=== PATIENT | male | born 1960 | race Caucasian/White ===

== ENCOUNTER → 2016-08-13 | Outpatient (CLI) | payer OTHER ==
[~2016-08-13] VITALS: Ht 172.7 cm; Wt 79.6 kg
[~2016-08-13] MED LIST: ASPIRIN EC81 M1; ASPIRIN PO; BENICAR HCT 401 EACH PO; BENICAR40 MG PO; COLACE100 MG PO; CYMBALTA20 MG PO; CYMBALTA30 MG PO; FELDENE20 MG PO; FLEXERIL PO; GLUCOSAMINE CH1 EAC2 PO; HYDROCODON-ACE1 EAC5 PO; IBUPROFEN 200200 M1 PO; LYRICA 75 MG CA75 MG PO; METOPROLOL TART25 MG PO; MOBIC15 MG PO; MULTIVITAMINS PO; NORCO 10-325 T1 EACH PO; OXYCONTIN10 M1 PO; OXYCONTIN10 MG PO; OXYCONTIN20 M1 PO; OXYCONTIN20 MG PO; PREDNISONE 10 M10 M1 PO
--- NOTE | ~2016-08-13 | HPC ---
[facility] [place] [address] PAIN MANAGEMENT CONSULTATION Name: ELENA BRADY Room #: REG Génesis Gomez#: [id number] Admission: 08/13/16 Attend Phys: Herrera Joseph MD Discharge: Date of : 56 Report #: [id number] THIS REPORT FOR: //name// CC: Tam Joseph DATE OF SERVICE: 08/13/2016 REASON FOR VISIT: Followup visit for progressive scoliosis of the thoracolumbar spine. HISTORY OF PRESENT ILLNESS: Jean-Claude returns to pain clinic today wearing a brace. 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 It is getting more difficult for him. Pain is across the thoracic and lumbar spine. He has localized pain and tenderness. He has myofascial tenderness also along the paravertebral muscles. He has been using oxycodone to help him get through his work day. He takes 2 tablets to 4 tablets daily. He is under an opioid agreement, which we reviewed today. Our goals are to keep him functioning at home and with work. He is getting more discouraged because of the progressive nature of his disease and the long-term outlook. We discussed on several occasions receiving a surgical consultation, and I have recommended again Dr. Jones at [facility]. I hope that he takes an opportunity to make appointment with Dr. Jones to discuss corrective surgery. There are certainly a number of worries for him about this. 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 He does have a disability policy which may come into play typically after extensive reconstructive spinal surgery, which may be necessary. Recovery can be anywhere between 3 and 6 months. The good news is at the other end of that, he may be much more functional and this may be more controlled as a result of treatment. He denies any current side effects from medication. He does feel that he is a bit depressed, and I think this is situational and not unusual in this circumstance. We discussed different medications and we decided to try Cymbalta since it has indications for both pain and for depression. I think that the pain relieving benefits may be recognized from this medication as well, and I would like him to initiate it as soon as possible at 30 mg. PHYSICAL EXAMINATION: GENERAL: He is pleasant, alert and oriented. He is realistic. His affect is pleasant, but a little discouraged. VITAL SIGNS: Blood pressure of 144/94 and heart rate 74. His BMI is 26.7. MUSCULOSKELETAL: Examination of his spine reveals rotational scoliosis of the thoracolumbar spine. Tenderness along the paravertebral muscles bilaterally. He has prominence on the left. Range of motion is limited in flexion, extension and rotation. [facility] [address] [place] [address] PAIN MANAGEMENT CONSULTATION Name: ELENA BRADY Ara Room #: REG Génesis Gomez#: [id number] Admission: 08/13/16 Attend Phys: Herrera Joseph MD Discharge: Date of : 56 Report #: [id number] IMPRESSION: 1. Kyphoscoliosis of thoracolumbar spine with lumbar spondylitic pain. 2. Management of high-risk medication. RECOMMENDATIONS: I have ordered his hydrocodone under terms of our agreement and Cymbalta trial. We will follow up by phone. I see Dr. Brady regularly around the hospital, so we can touch base on how his new medication is working. <ELECTRONICALLY SIGNED> By: Herrera Joseph MD 09/13/16 1130 [id number] Herrera Joseph MD /nt
[2016-08-13 10:02] VITALS: BP 144/94
== END | disposition home or self-care (01) ==
LOC: PAIN 07:03
DX: M41.85 Other forms of scoliosis, thoracolumbar region (principal); M46.86 Other specified inflammatory spondylopathies, lumbar region

== ENCOUNTER → 2017-01-26 | Outpatient (CLI) | payer OTHER ==
--- NOTE | ~2017-01-26 | HPC ---
[facility] [address] [place] [address] PAIN MANAGEMENT CONSULTATION Name: ELENA BRADY Ara Room #: REG JELENAGénesis Gomez#: [id number] Admission: 01/26/17 Attend Phys: Herrera Joseph MD Discharge: Date of : 56 Report #: [id number] THIS REPORT FOR: //name// CC: Tam Joseph DATE OF SERVICE: 01/26/2017 Followup visit for chronic pain related to severe degenerative disease of the thoracolumbar spine with scoliosis. The patient returns to pain clinic today for renewal of pain medication. Pain score is 4/10 with medication. He has been using cautiously hydrocodone 10/325 four times daily. 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 He has considered surgery on several occasions, but has decided at this time that he would prefer to manage with medication, brace and good pacing, planning and prioritizing for his lifestyle. He seems to have accepted his chronic condition, although of course it is discouraged not to be able to be as active as he would like. PAST MEDICAL HISTORY: Significant for hypertension, ACL repair on the left. He has a history of some cardiac complications, but the workup was negative. PHYSICAL EXAMINATION: He is a pleasant 56-year-old. He looks younger than his stated age. He moves easily from sitting to standing position and walks with his brace. Scoliotic change is noted in the low back with localized tenderness across the lordotic curve. His most recent x-rays date back a few years showing degenerative scoliosis with leftward curvature L2 and L3 and a pseudo retrolisthesis of L1 on L2, L2 on L3. ____ changes are noted at several levels. IMPRESSION: 1. Chronic intractable low back pain with left lumbar radiculopathy. Leg pain has been much improved and most of his pain remains in the back at this time. 2. Management of high risk medication. PLAN: I renewed his medication under terms of an opioid agreement. His MME dose daily is currently at 40. I have suggested trial of Celebrex, he can take it cautiously and discontinue all other anti-inflammatory drugs. Followup visit is planned in 3 months. By: [id number] Herrera Joseph MD /nt
[2017-01-26 15:35] VITALS: BP 119/75
== END | disposition home or self-care (01) ==
LOC: PAIN 06:54
DX: M54.16 Radiculopathy, lumbar region (principal); G89.29 Other chronic pain; I10 Essential (primary) hypertension; F11.20 Opioid dependence, uncomplicated; Z98.890 Other specified postprocedural states; Z79.899 Other long term (current) drug therapy

== ENCOUNTER → 2017-07-23 | Outpatient (CLI) | payer BC, OTHER ==
[~2017-07-23] MED LIST changes: +CELEBREX 200 M200 MG PO; +METHADONE HCL5 MG PO
--- NOTE | ~2017-07-23 | HPC ---
[facility] [address] [place] [address] PAIN MANAGEMENT CONSULTATION Name: ELENA BRADY Room #: REG MECHE Gomez#: [id number] Admission: 07/23/17 Attend Phys: Herrera Joseph MD Discharge: Date of : 56 Report #: [id number] THIS REPORT FOR: //name// CC: Tam Joseph DATE OF SERVICE: 07/23/2017 DATE OF REGISTRATION: 07/23/2017 Followup visit for chronic intractable pain with significant kyphoscoliosis of the thoracolumbar spine. The patient returns to pain clinic today for followup. He was last seen on 01/26/2017. I provided him with some opioid medications and I have also suggested Celebrex for what is likely facet arthropathy. We have talked about other medication changes today. Suggested that he might benefit from calcium channel rustam such as gabapentin, even though his pain is primarily mechanical I believe. There is some evidence of small fibers may play a role in this and gabapentin can sometimes help. He gets tired with it and Gralise I think would be a good option. He does not feel like he can work when he takes gabapentin even titrating with small dose. A sample pack was offered. I have also talked about a long-acting opioid. Per my experience a rotation to methadone is an excellent drug for patients who have been on longstanding opioids and I am going to try that with the patient today. We had a long talk about methadone risks and benefits since it has rather a salty reputation. We have found in our practice however that good educations, proper titration of medication and very close monitoring has made this a very useful and safe medication and is cost beneficial to many of our patients. It helps with a variety of pain and the patient is anxious to try something that will provide him with a more consistent baseline rather than the 4 hydrocodone he is taking a day now. He does get relief from opioids, but the duration of responses not as long as he would like. PHYSICAL EXAMINATION: He is pleasant, alert and oriented. He wears a brace around his waist. His pain score is a 4/10. His blood pressure is 135/80, heart rate is 80. He has some tenderness across the low back and there is pain at the apex of his curvature. IMPRESSION: 1. Chronic low back pain. Much of this is mechanical now. 2. Management of high risk medications under terms of written opioid agreement. PLAN: We have reviewed his agreement. We reviewed his use of medication. We discussed methadone as an additional medication and I have given him his first [address] [address] PAIN MANAGEMENT CONSULTATION Name: ELENA BRADY Room #: REG [facility] Jason#: [id number] Admission: 07/23/17 Attend Phys: Herrera Joseph MD Discharge: Date of : 56 Report #: [id number] prescription for methadone at 60 tablets one-half tablet taken 3 times a day, titrating up to 1 tablet 3 times a day. He has his hydrocodone and Celebrex. 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 He will give me a feedback on how the medication is working. He will safeguard all medications. By: [id number] Herrera Joseph MD /nt
[2017-07-23 12:36] VITALS: BP 111/77
== END ==
LOC: PAIN 07:16
DX: M41.85 Other forms of scoliosis, thoracolumbar region (principal); F11.90 Opioid use, unspecified, uncomplicated; Z79.899 Other long term (current) drug therapy

== ENCOUNTER → 2018-01-04 | Outpatient (CLI) | payer BC, OTHER ==
[~2018-01-04] VITALS: Ht 165.1 cm; Wt 78.9 kg
[~2018-01-04] MED LIST changes: +HYSINGLA ER30 MG PO
--- NOTE | ~2018-01-04 | HPC ---
[facility] [address] [place] [address] PAIN MANAGEMENT CONSULTATION Name: ELENA BRADY Ara Room #: REG MECHE Gomez#: [id number] Admission: 01/04/18 Attend Phys: Herrera Joseph MD Discharge: Date of : 56 Report #: [id number] THIS REPORT FOR: //name// CC: Tam Joseph DATE OF SERVICE: 01/04/2018 SUBJECTIVE: Followup visit for severe kyphoscoliosis of the thoracolumbar spine. This is a followup visit for the patient who I have last seen around 6 months ago. I actually touch base with him regularly. 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 He has been managing his severe back pain related to degenerative conditions with medication provided through our clinic. He also follows with Dr. Tam Nuñez. We have tried to use short acting opioids so that he can use them as needed. He is finding that the in his medication are causing problems, so today we discussed Hysingla. He has done well with hydrocodone. I did try him on methadone for a baseline opioid and he found that to be a bit cloudy for him. He did not like the sensation that he got from it. He has always done well with hydrocodone, so hopefully Hysingla will be a good choice for him. 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 He has an active family life. It is difficult for him to get through the day with his pain, but he is doing it. He is grateful for the relief with medication and has had no misuse or abuse of the medication. He denies any significant side effects. We reviewed other suggestions for co-analgesia including ibuprofen which he currently takes, cautiously understanding GI, renal and cardiac side effects. PHYSICAL EXAMINATION: GENERAL: He is pleasant, alert and oriented. VITAL SIGNS: Blood pressure is 116/67, heart rate 78, respirations 16. No signs of overmedication. He is a 5 feet 5 inches with a weight of 174 pounds, BMI is 29.0. MUSCULOSKELETAL: He wears a Velcro support lumbar brace, which helps while in the sitting position. Curvature of the spine is noted with local tenderness. Denies any leg pain at this time with standing or walking. IMPRESSION: 1. Severe chronic back pain, thoracolumbar, related to kyphoscoliosis. 2. Management of high risk medications under terms of written opioid agreement. I reviewed for him his opioid agreement and also the CDC guidelines. We talked [address] [address] PAIN MANAGEMENT CONSULTATION Name: ELENA BRADY Room #: REG [facility].#: [id number] Admission: 01/04/18 Attend Phys: Herrera Joseph MD Discharge: Date of : 56 Report #: [id number] about his morphine milligram equivalents particularly in light of the new changes. We decided to place him at 30 MME or 30 of Hysingla for baseline and he will be allowed to additional hydrocodone 10/325 tablets for breakthrough pain, which will maximize his daily morphine milligram equivalents at 50. Discussed side effects, importance of safeguarding and the other important aspects of his opioid agreement. Plan to see him back in the pain clinic officially in 6 months. I will touch base with him throughout the weeks and months in the hospital. By: 1305 22 Herrera Joseph MD /nt
[2018-01-04 10:25] VITALS: BP 116/67
== END ==
LOC: PAIN 06:52
DX: M41.85 Other forms of scoliosis, thoracolumbar region (principal); F11.90 Opioid use, unspecified, uncomplicated

== ENCOUNTER → 2019-08-01 | Outpatient (CLI) | payer BC ==
[~2019-08-01] VITALS: Ht 165.1 cm; Wt 77.6 kg
[~2019-08-01] MED LIST changes: +CELEBREX 200 M200 M1 PO
--- NOTE | ~2019-08-01 | HPC ---
[facility] [address] [place] [address] PAIN MANAGEMENT CONSULTATION Name: ELENA BRADY Room #: REG MECHE Jason#: [id number] Admission: 08/01/19 Attend Phys: Herrera Joseph MD Discharge: Date of : 56 Report #: [id number] THIS REPORT FOR: //name// CC: Tam Joseph DATE OF SERVICE: 08/01/2019 Followup visit for chronic intractable back pain with severe kyphoscoliosis of thoracolumbar spine. I am seeing the patient today in followup. We see each other fairly frequently and keep in touch about his chronic pain medication use at the hospital. 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 He is doing well and credits much of his ability to function on a daily basis on his ability to control pain with the use of his medication. He has been on opioids now for a number of years. There have been no unusual events. He is using his medication clearly as outlined in our medical plan and there has been no evidence of misuse, abuse or addiction. He denies significant side effects. He has tried other medications. In fact we discussed today his reaction to Lyrica, which caused significant drowsiness. He has no drowsiness and is able to function highly with the Hysingla. Hysingla 30 mg taken once daily has been able to reduce his number of pills taken. We do also allow him to take hydrocodone as a breakthrough 10/325 mg. He takes 1-2 tablets a day maximum. He uses it in anticipation of painful events or when the pain becomes severe after activity. His only other co-analgesic is Celebrex, which he also takes daily 200 mg. PQRS review shows that he does not have significant osteoarthritis, but he does have spondylosis of the lumbar spine. His BMI is 28.5, slightly up from last visit. Pain intensity 3. Blood pressure is 120/80. Heart rate is 80. He has not fallen nor is he a fall risk. He is on no blood thinning medications. Dr. Nuñez does have him on medication for hypertension of Benicar 40/12.5 which he takes daily. He has signed an opioid agreement. He has completed an opioid risk tool with a score of 0. His functional score today is 35, slightly higher than his last at 18. Denies use of tobacco. Drinks alcohol in a social setting. He is careful about using alcohol after taking a shorter acting opioid due to the additive effects. Urine drug screens have been performed at my discretion. There seems to be no indication of misuse or abuse and I have elected not to order one today. PHYSICAL EXAMINATION: GENERAL: He is well dressed, well groomed, alert and oriented. No signs of [facility] [address] [place] [address] PAIN MANAGEMENT CONSULTATION Name: ELENA BRADY Ara Room #: REG CLGénesis Gomez#: [id number] Admission: 08/01/19 Attend Phys: Herrera Joseph MD Discharge: Date of : 56 Report #: [id number] overmedication, depression or anxiety. Moves independently from sitting to standing position, walks without antalgic features. He is wearing a lumbar spine brace. There is tenderness across the lumbosacral segment. Kyphoscoliosis is noted. IMPRESSION: 1. Chronic intractable back pains due to kyphoscoliosis. He has spondylitic and myofascial pain. The radicular pain has been well managed. 2. Management of high risk medications under terms of written opioid agreement. PLAN: I have renewed his medications electronically for the next 3 months. He will continue to follow up with us. He saw Elba Hightower at his last visit. I have allowed him to be seen in 6-month interval since I talked to him with some great regularity and I feel like we are keeping touch. If he has any problems, he knows he will contact our clinic. I reviewed the prescription drug monitoring information for the last 6 months and he is right on schedule. By: 1312 Herrera Joseph MD /nt
--- NOTE | 2019-08-01 13:09 | NUR ---
Pain Clinic Assessment: 1. History of Osteoarthritis: NO History of Rheumatoid Arthritis: NO 2. Height: 5 ft. 5 in. 165.1 cm. Weight: 171.0 lb. oz. 77.565 kg. Patient's BMI: 28.5 3. Vital Signs: BP: Pulse: Resp: Temp: 02 Sat: ECG Mon: 4. Pain Intensity: 3 5. Fall Risk: Dizziness: N Needs help standing or walking: N Fallen in the last 3 months: N Fall risk comments: 6. Patient on Blood Thinner: None 7. History of Hypertension: Y 8. Opioid Therapy greater than 6 weeks: Y Opiate Contract Signed: 08/20/07 9. Risk Assessment Tool Provided: 0 LOW 10. Functional Assessment Tool: 11. Recreational Drug Use: Never Drug Type: Tobacco Use: Never Smoker Tobacco Type: Amount or Packs/day: How Many Years: Alcohol Use: Yes Frequency: Weekly Quant:
== END ==
LOC: PAIN 06:30
DX: G89.4 Chronic pain syndrome (principal); M41.84 Other forms of scoliosis, thoracic region; Z79.891 Long term (current) use of opiate analgesic

== ENCOUNTER → 2019-09-08 | Outpatient (CLI) | payer BC ==
[~2019-09-08] VITALS: Ht 170.2 cm; Wt 76.2 kg
[~2019-09-08] MED LIST changes: +NEURONTIN100 MG PO; +RAYOS5 MG PO
--- NOTE | ~2019-09-08 | HPC ---
[facility] [place] [address] [place] [address] PAIN MANAGEMENT CONSULTATION Name: ELENA BRADY Room #: REG JELENAGénesis Gomez#: [id number] Admission: 09/08/19 Attend Phys: Herrera Joseph MD Discharge: Date of : 56 Report #: [id number] THIS REPORT FOR: cc: Tam Nuñez MD, Rene P. MD Morgan, Richard L. MD ~ THIS REPORT FOR: //name// CC: Tam Joseph DATE OF SERVICE: 09/08/2019 Followup visit for cervical radiculopathy, C8-T1 distribution. The patient returns to pain clinic today for a cervical epidural injection. I have had several phone calls with him over the course of the last 2 weeks. He has had increasing pain in his neck radiating into a C8-T1 distribution. 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 He has well documented longstanding degenerative spine disease involving cervical, thoracic and lumbar spine. He has chronic intractable pain, which we have been able to manage fairly effectively with medication under terms of written medication management agreement. He has done well with medications. He is currently on a long-acting hydrocodone, Hysingla 30 mg q. 24 hours. He also uses Celebrex 200 mg on a daily basis, gabapentin 100 mg t.i.d. Only other medicines are glucosamine chondroitin, Benicar for hypertension and a multivitamin. He did have a prednisone Dosepak that he took a week or two ago, which is helpful temporarily for his radicular pain. Today, he describes his pain as a 7/10, constant, dull aching sensation, worse with standing and walking and when he rotates his head to the right. He is alleviated when he lies down and can take medication for some relief. He has also used a soft neck brace, which he has found useful. PHYSICAL EXAMINATION: GENERAL: Pleasant 59-year-old. VITAL SIGNS: Blood pressure 134/81, heart rate 84, respirations 18. He is 5 feet 7 inches, 168 pounds, BMI of 26.3. MUSCULOSKELETAL: Cervical spine exam reveals decreased range of motion, particularly with right lateral tilt and rotation. Contralateral rotation also radiates pain into the right C8 distribution. It does not extend as far as the hand. 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 There is no fine motor involvement. There is a [address] [address] PAIN MANAGEMENT CONSULTATION Name: ELENA BRADY [id number] Admission: 09/08/19 Attend Phys: Herrera Joseph MD Discharge: Date of : 56 Report #: [id number] negative Dinorah's sign. CHEST: Clear. CARDIAC: Rhythm is regular. EXTREMITIES: Examination of reflexes in lower extremities demonstrates normal reflexes with no evidence of hyperreflexia to suggest cord compression. His MRI is reviewed. He could have a radiologist as a patient. He can review the films with me. The area of concern is at C7-T1. There is evidence of reaction at C7-T1 facet joint. This may cause some extension into the canal, which ultimately resulted in irritation of the nerve root ____. There is some neural foraminal narrowing and spinal stenosis is most prominent there at C7-T1. IMPRESSION: Cervical radiculopathy. RECOMMENDATIONS: Cervical epidural, I think, is quite reasonable and indicated in this situation. I have reviewed the potential risks and benefits today. He is anxious to proceed. PROCEDURE: After informed consent, he was taken to the fluoroscopic suite, placed prone, skin prepped with ChloraPrep. Skin anesthetized over the C6-C7 interspace. We had previously reviewed and this is most likely safe entry point just above his narrowing. A 20-gauge Tuohy epidural needle was advanced into the epidural space just to the right of midline using loss of resistance technique. There was no blood or CSF aspirated. One 0.25 mL followed by another 0.5 mL of Omnipaque was injected with an excellent epidurogram achieved. It was followed by 3 mL of 1% lidocaine mixed with 80 mg of triamcinolone. He tolerated the procedure well. He was observed for 45 minutes and discharged. Followup visit is planned by phone and will be in communication. We will continue to provide his medications on time per his requirements from the opioid/medication agreement. By: [id number] Herrera Joseph MD /nt
[2019-09-08 08:15] VITALS: BP 134/81
--- NOTE | 2019-09-08 08:22 | NUR ---
Pain Clinic Assessment: 1. History of Osteoarthritis: NO History of Rheumatoid Arthritis: NO 2. Height: 5 ft. 7 in. 170.2 cm. Weight: 168.0 lb. oz. 76.204 kg. Patient's BMI: 26.3 3. Vital Signs: BP: 134/81 Pulse: 84 Resp: 16 Temp: 02 Sat: 96 ECG Mon: 4. Pain Intensity: 7 5. Fall Risk: Dizziness: N Needs help standing or walking: N Fallen in the last 3 months: N Fall risk comments: 6. Patient on Blood Thinner: None 7. History of Hypertension: Y 8. Opioid Therapy greater than 6 weeks: Y Opiate Contract Signed: 08/20/07 9. Risk Assessment Tool Provided: 0 LOW 10. Functional Assessment Tool: 11. Recreational Drug Use: Never Drug Type: Tobacco Use: Never Smoker Tobacco Type: Amount or Packs/day: How Many Years: Alcohol Use: Yes Frequency: Quant:
== END | disposition home or self-care (01) ==
LOC: PAIN 06:48
DX: M54.12 Radiculopathy, cervical region (principal); G89.29 Other chronic pain; Z79.891 Long term (current) use of opiate analgesic; Z79.899 Other long term (current) drug therapy; Z98.890 Other specified postprocedural states

== ENCOUNTER → 2020-02-09 | Outpatient (CLI) | payer BC, OTHER ==
[~2020-02-09] VITALS: Ht 167.6 cm; Wt 76.1 kg
[~2020-02-09] MED LIST changes: +LOSARTAN-HCTZ1 EAC3 PO
--- NOTE | ~2020-02-09 | HPC ---
[facility] [address] [place] [address] PAIN MANAGEMENT CONSULTATION Name: ELENA BRADY Room #: REG MECHE MarcosRajeshLeona#: [id number] Admission: 02/09/20 Attend Phys: Herrera Joseph MD Discharge: Date of : 56 Report #: [id number] THIS REPORT FOR: cc: Tam Nuñez MD, Rene P. MD Morgan,Herrera Bansal MD ~ CC: Tam Joseph DATE OF SERVICE: 02/09/2020 Follow up visit for chronic cervical radiculopathy. I see the patient officially about every 6 months. 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 His back is doing well and he has really done exceptionally well with his cervical epidural injection that we performed in September. That pain has abated completely. His pain today is mostly in his lumbar spine, he has some leg pain as well. Medication has done a nice job of controlling that pain. He has been on an opioid agreement for over 5 years. We discussed the terms of that agreement and the chronic long-term use of opioids on both a medical and philosophical basis. He understands that he may remain on it indefinitely. He is grateful that it has allowed him to continue working while his young children are growing up and going off to school. It is hard for me to believe that his twins are now 16 years of age. Today, he looks fit. His height is 5 feet 6 inches, weight is 167, BMI is 27.1, blood pressure 122/74, heart rate 93, respirations 18, O2 sat 97, pain intensity is listed as a 5/10. He has no difficulty moving independently from sitting to standing position. 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 Localized tenderness throughout and some restrictions in motion. IMPRESSION: Chronic intractable pain related to severe thoracolumbar spondylosis. PLAN: We will continue his current regimen of Hysingla 30 mg once daily and hydrocodone 1-2 tablets daily for breakthrough pain during work hours to help him control intractable pain while he is sitting. He denies side effects and carefully safeguards his medication. I have reviewed his use under the prescription drug monitoring program and there are no unexpected entries. Prescriptions were released earlier this month. By: [id number] Herrera Joseph MD /nt
[2020-02-09 14:44] VITALS: BP 122/74
--- NOTE | 2020-02-09 14:52 | NUR ---
Pain Clinic Assessment: 1. History of Osteoarthritis: back hands History of Rheumatoid Arthritis: NO 2. Height: 5 ft. 6 in. 167.6 cm. Weight: 167.8 lb. oz. 76.114 kg. Patient's BMI: 27.1 3. Vital Signs: BP: 122/74 Pulse: 93 Resp: 18 Temp: 02 Sat: 97 ECG Mon: 4. Pain Intensity: 5 5. Fall Risk: Dizziness: N Needs help standing or walking: N Fallen in the last 3 months: N Fall risk comments: 6. Patient on Blood Thinner: None 7. History of Hypertension: Y 8. Opioid Therapy greater than 6 weeks: Y Opiate Contract Signed: 08/20/07 9. Risk Assessment Tool Provided: 0 LOW 10. Functional Assessment Tool: 11. Recreational Drug Use: Never Drug Type: Tobacco Use: Never Smoker Tobacco Type: Amount or Packs/day: How Many Years: Alcohol Use: Yes Frequency: Daily Quant: 1 evening
== END ==
LOC: PAIN 07:10
PROVIDERS: ATTEND Anesthesiology Pain Medicine
DX: M47.815 Spondylosis without myelopathy or radiculopathy, thoracolumbar region (principal)

== ENCOUNTER → 2020-08-27 | Outpatient (CLI) | payer BC, OTHER ==
[~2020-08-27] VITALS: Ht 167.6 cm; Wt 78.6 kg
[2020-08-27 10:58] VITALS: BP 107/73
--- NOTE | 2020-08-27 11:08 | NUR ---
Pain Clinic Assessment: 1. History of Osteoarthritis: back hands History of Rheumatoid Arthritis: NO 2. Height: 5 ft. 6 in. 167.6 cm. Weight: 173.2 lb. oz. 78.563 kg. Patient's BMI: 28.0 3. Vital Signs: BP: 107/73 Pulse: 80 Resp: 14 Temp: 02 Sat: 97 ECG Mon: 4. Pain Intensity: 10 5. Fall Risk: Dizziness: N Needs help standing or walking: N Fallen in the last 3 months: N Fall risk comments: 6. Patient on Blood Thinner: None 7. History of Hypertension: Y 8. Opioid Therapy greater than 6 weeks: Y Opiate Contract Signed: 08/20/07 9. Risk Assessment Tool Provided: 0 LOW 10. Functional Assessment Tool: 11. Recreational Drug Use: Never Drug Type: Tobacco Use: Never Smoker Tobacco Type: Amount or Packs/day: How Many Years: Alcohol Use: Yes Frequency: Weekly Quant:
== END | disposition home or self-care (01) ==
LOC: PAIN 06:49
PROVIDERS: ATTEND Anesthesiology Pain Medicine
DX: M54.12 Radiculopathy, cervical region (principal); G89.29 Other chronic pain; M54.9 Dorsalgia, unspecified; M41.85 Other forms of scoliosis, thoracolumbar region; I10 Essential (primary) hypertension; M19.90 Unspecified osteoarthritis, unspecified site; Z98.890 Other specified postprocedural states; Z79.899 Other long term (current) drug therapy; Z79.891 Long term (current) use of opiate analgesic

== ENCOUNTER → 2020-09-05 | Outpatient (CLI) | payer BC, OTHER | LOC: NUC 09:28 | PROVIDERS: ATTEND Family Medicine | DX: M41.9 Scoliosis, unspecified (principal); Z92.241 Personal history of systemic steroid therapy ==

== ENCOUNTER → 2020-09-05 | Outpatient (CLI) | payer OTHER | LOC: CAT 09:29 | PROVIDERS: ATTEND Family Medicine | DX: Z13.6 Encounter for screening for cardiovascular disorders (principal); I25.10 Atherosclerotic heart disease of native coronary artery without angina pectoris; E78.00 Pure hypercholesterolemia, unspecified ==

== ENCOUNTER → 2021-04-01 | Outpatient (CLI) | payer BC, OTHER ==
[~2021-04-01] VITALS: Ht 165.1 cm; Wt 77.1 kg
[~2021-04-01] MED LIST changes: +ASA81BEC PO; +FISH OIL 1,0001 EAC9 PO
[2021-04-01 11:05] VITALS: BP 105/71
--- NOTE | 2021-04-01 11:14 | NUR ---
Pain Clinic Assessment: 1. History of Osteoarthritis: back hands History of Rheumatoid Arthritis: NO 2. Height: 5 ft. 5 in. 165.1 cm. Weight: 170.0 lb. oz. 77.112 kg. Patient's BMI: 28.3 3. Vital Signs: BP: 105/71 Pulse: 73 Resp: 16 Temp: 02 Sat: 100 ECG Mon: 4. Pain Intensity: 0 5. Fall Risk: Dizziness: N Needs help standing or walking: N Fallen in the last 3 months: N Fall risk comments: 6. Patient on Blood Thinner: None 7. History of Hypertension: Y 8. Opioid Therapy greater than 6 weeks: Y Opiate Contract Signed: 08/20/07 9. Risk Assessment Tool Provided: 0 LOW 10. Functional Assessment Tool: 11. Recreational Drug Use: Never Drug Type: Tobacco Use: Never Smoker Tobacco Type: Amount or Packs/day: How Many Years: Alcohol Use: Yes Frequency: Quant:
== END ==
LOC: PAIN 10:37
PROVIDERS: ATTEND Anesthesiology Pain Medicine
DX: M41.85 Other forms of scoliosis, thoracolumbar region (principal); M54.12 Radiculopathy, cervical region; G89.4 Chronic pain syndrome; Z79.899 Other long term (current) drug therapy; Z79.891 Long term (current) use of opiate analgesic